=== PATIENT | female | born 1960 | race African-American/Black ===

== ENCOUNTER 2017-09-19 15:27 | Emergency (ER) | payer MEDICAID ==
[~2017-09-19] VITALS: Ht 162.6 cm; Wt 91.8 kg
[2017-09-19 16:08] VITALS: Ht 162.6 cm; Wt 91.8 kg
[2017-09-19 17:11] LABS: microscopic required? NO
[2017-09-19 17:23] LABS: UA SPECIFIC GRAVITY 1.025 (1.005-1.035); urine erythrocyte NEGATIVE (NEGATIVE)
[2017-09-19 17:26] LABS: BASOPHIL % 1.4 % (0-2); PLATELET COUNT 286 x10^3mcL (130-400); RED CELL DISTRIBUTION WIDTH 13.9 % (11.5-14.5)
[2017-09-19 17:40] LABS: CALCIUM 9.1 mg/dL (8.5-10.1); CARBON DIOXIDE 32.2 mmol/L (21-32); CHLORIDE SERUM 103 mmol/L (98-107); CREATININE SERUM 0.7 mg/dL (0.6-1.0); GFR1 > 60 mL/min; GLUCOSE SERUM 98 mg/dL (74-106); POTASSIUM SERUM 3.8 mmol/L (3.5-5.1); SODIUM SERUM 139 mmol/L (136-145)
[2017-09-19 17:44] LABS: ALBUMIN 3.5 g/dL (3.4-5.0); ALKALINE PHOSPHATASE 63 U/L (46-116); ALT/SGPT 7 U/L (14-59); AMYLASE 65 U/L (25-115); AST/SGOT 5 U/L (15-37); BILIRUBIN TOTAL 0.26 mg/dL (0.20-1.00); LIPASE 185 IU/L (73-393); TOTAL PROTEIN, SERUM 7.6 g/dL (6.4-8.2)
[2017-09-19 20:18] VITALS: BP 120/80
== END 2017-09-19 20:18 | disposition home or self-care (01) ==
LOC: ED 15:27
PROVIDERS: Emergency Medicine
DX: R10.2 Pelvic and perineal pain (principal); R10.31 Right lower quadrant pain; N95.9 Unspecified menopausal and perimenopausal disorder; R35.0 Frequency of micturition
CPT/HCPCS: 36415; 83880; J1885; J3010; Q0162